=== PATIENT | female | born 1965 | race Caucasian/White ===

== ENCOUNTER 2018-05-09 16:27 | Emergency (ER) | payer BC, SELFPAY ==
[2018-05-09 16:32] VITALS: BP 119/80; PULSE 91; RESP 18; TEMP 36.7; O2SAT 98; BMI 24.7
--- NOTE | 2018-05-09 16:38 | DI.RAD.S_ITS ---
PROCEDURE: XR WRIST LT MIN 3V INDICATIONS: FOOSH TECHNIQUE: 4 views of the wrist were acquired. COMPARISON: None. FINDINGS: Bones: There is a distal radial metaphyseal fracture with impaction and possible intra-articular involvement. No suspicious bony lesions. Scaphoid view: Scaphoid appears intact. Soft tissues: No suspicious soft tissue calcifications. Soft tissue swelling. IMPRESSION: Distal radial metaphyseal fracture with impaction and possible intra-articular involvement. Dictated by: Sha Polo M.D. on 05/09/2018 at 17:32 Approved by: Sha Polo M.D. on 05/09/2018 at 17:34
[2018-05-09] MEDS: CODEINE/ACETAMINOPHEN 30/300 TABLET 1 TAB PO (18:35)
[2018-05-09] MEDS: CODEINE/APAP 30/300 PREPACK 1 BOTTLE MISC (18:37)
--- NOTE | 2018-05-09 18:43 | ED_ITS ---
HPI - Extremity Injury (Upper) General Chief Complaint: Extremity Injury, Upper Stated Complaint: thinks she fractured her left arm Time Seen by Provider: 05/09/18 18:01 Source: patient and family Mode of arrival: wheelchair (uses crutches) Limitations: no limitations History of Present Illness HPI narrative: This is a 52-year-old female who comes to the emergency department with complaint of left extremity injury. Patient states she was sitting on the floor wrapping Neptali hidalgo. She went to get up and moved to the living room she said her crutches aside Um and lost her balance and fell to the floor. She tried to catch herself with her arm outstretched on her left side. She felt immediate and noticed a lump at the wrist. 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 Patient denies any other injuries. She denies any in her head, any neck or back pain. She denies any new numbness or tingling in her upper extremity or elsewhere. She denies any new weakness. She has pain at the wrist and slightly extending up the forearm. 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 She has a defibrillator/pacer as well as history of congestive heart failure and diet-controlled diabetes. Patient states that these have been well controlled in the last couple weeks and she is denying any chest pain, shortness of breath, swelling in her other extremity or other concerning symptoms. Related Data Previous Rx's Medication Instructions Recorded acetaminophen-codeine 1 tab PO Q6H PRN #14 tab 05/09/18 [Tylenol-Codeine #3] Allergies Allergy/AdvReac Type Severity Reaction Status Date / Time metformin AdvReac Verified 05/09/18 16:37 Review of Systems Review of Systems All systems reviewed & are unremarkable except as noted in HPI and below Constitutional Denies weakness ENT Ears, Nose, Mouth, and Throat: Denies neck pain and Denies other (Head injury) Cardiovascular Denies chest pain, Denies rapid heart rate, Denies edema and Denies dyspnea Respiratory Denies chest congestion, Denies cough and Denies dyspnea Gastrointestinal Gastrointestinal: Denies nausea and Denies vomiting Musculoskeletal Reports as per HPI, Reports abnormal gait (Uses crutches 2nd amputation), Denies back pain, Reports deformity, Reports arthralgias (Left wrist), Reports joint swelling, Reports limited range of motion, Denies muscle weakness, Denies neck pain, Denies numbness and Denies tingling Integumentary/Breasts Denies unusual bruising and Denies wounds Neurologic Reports abnormal gait (Uses crutches 2nd amputation), Denies numbness, Denies tingling and Denies weakness PFSH Medical History Cardiac arrhythmia (Acute) Cardiac defibrillator in place (Acute) Cardiomyopathy secondary to chemotherapy (Acute) Diet-controlled diabetes mellitus (Acute) Saucedo sarcoma (Acute) Lower limb amputation, unspecified level (Acute) Osteosarcoma (Acute) Social History details: Lives on [facility] Smoking Status: Never smoker Exam Narrative Exam Narrative: GENERAL: Alert and oriented x three, well-nourished, well- appearing female in mild distress. HEENT: Head normocephalic, atraumatic, EOMI, pupils reactive, face symmetric, moist mucous membranes NECK: Supple, full range of motion CARDIOVASCULAR: Regular rate and rhythm without murmurs, rubs or gallops. RESPIRATORY: Breath sounds equal bilaterally, no wheezes rales or rhonchi. ABDOMEN: Soft, nontender. Normoactive bowel sounds all 4 quadrants. No guarding or rebound, rigidity, no mass EXTREMITIES: Normal range of motion except for left wrist. Patient has deformity of the left wrist over the radial area. Patient has some movement in all 5 fingers, she has normal sensation, cap refills less than 2 sec and fingers and hand are warm. Patient has 2+ radial pulse. She has no other bony tenderness in the fingers or hand, nor any in the elbow or shoulder, no clubbing or edema. Neurovascularly intact. Patient does have an amputation of her left lower extremity. NEUROLOGICAL: Cranial nerves II through XII grossly intact. SKIN: Warm, dry, no petechiae, no rashes or lesions. Initial Vital Signs Initial Vital Signs: Vital Signs Temperature 98.1 F 05/09/18 16:32 Pulse Rate 91 H 05/09/18 16:32 Respiratory Rate 18 05/09/18 16:32 Blood Pressure 119/80 05/09/18 16:32 Pulse Oximetry 98 05/09/18 16:32 Course Orders Ordered: ED Orders 05/09/18 16:38 XR wrist LT min 3V Stat Discontinued Medications Acetaminophen/Codeine Phosphate (Tylenol #3) 1 tab PO NOW ONE Stop: 05/09/18 18:27 Last Admin: 05/09/18 18:35 Dose: 1 tab Acetaminophen/Codeine Phosphate (Tylenol #3 Prepack) 1 bottle MISC SEEINSTR ONE Stop: 05/09/18 18:27 Last Admin: 05/09/18 18:37 Dose: 1 bottle Vital Signs - 8 hr 05/09/18 20:07 Pulse Rate 79 Respiratory Rate 18 Blood Pressure 123/71 Pulse Oximetry 97 MDM - Extremity Injury (Upper) MDM Narrative Medical decision making narrative: Patient's x-ray shows a fracture. Discussed with Dr. Gabrielle Soto who reviewed the images. Plan for outpatient follow-up. Dr. Soto has the patient's number so she can contact her to set up follow-up. Patient also given referral. Patient states she does not want anything stronger than Tylenol 3. She normally takes 1 in the evening, given a prescription so she has additional which she may take every 6 hr as needed. We did discuss she may take regular Tylenol 650 instead during the day if she prefers. She should not take Tylenol and Tylenol 3 at the same time. She has led to have a 1000 mg of Tylenol total in a 24 hour period. Patient only normally uses crutches. We discussed she feels she will be able to ambulate with her crutches at home she states she does not really have to use her wrist or lower portion of her arm typically with her crutches. She does have a wheelchair that she can have access to. We also discussed platform brace is an option if she needs a walker or walker with an additional orthopedic device to help her get around. Also given rx for wheelchair if she does not have access to one at home. Recheck after splint placed by nursing, adjusted edge padding for patient, nvi. Discharge Plan Departure Patient Disposition: Home Clinical Impression: Closed fracture of left wrist Discharge Date/Time: 05/09/18 19:50 Interventions: ED Discharge Assessment Last Done: 05/09/18 20:07 Instructions: DI for Wrist Fracture Activity Restrictions/Additional Instructions: Follow-up with orthopedic surgery in the next 3-5 days for re-evaluation. Call for an appointment. You may take Tylenol #3 every 8 hr as needed for pain. You may take plain Tylenol up to a 1000 mg instead of Tylenol 3. But do not take these at the same time. You may have a total of 3000mg of tylenol in 24 hour period. If you need a walker with platform (wrist brace) they may have them available at [facility], [place] or through a medical supply store. You may also ask Dr. Soto about options also. Splint Care: Keep splint clean and dry. Elevated affected body part to decrease swelling. OK to use ice pack on the affected body part. Use for 15-20 minutes each time, for 5-6x per day. If you develop worsening pain, numbness, tingling, discoloration of the affected body part, loosen the splint by loosening the MICHELLE wrap, and either see your doctor for an urgent re-assessment, or return to the Emergency Department. Return to the Emergency Department for any new or worsening symptoms. Prescriptions: New acetaminophen-codeine [Tylenol-Codeine #3] 300-30 mg tablet 1 tab PO Q6H PRN (Reason: pain) Qty: 14 RF: 0 Referrals: Gabrielle Soto MD [Physician] -
[2018-05-09 20:07] VITALS: BP 123/71; PULSE 79; RESP 18; O2SAT 97
== END 2018-05-09 19:50 | disposition home or self-care (01) ==
PROVIDERS: Emergency Provider Emergency Medicine
DX: S62.102A Fracture of unspecified carpal bone, left wrist, initial encounter for closed fracture (principal); W18.30XA Fall on same level, unspecified, initial encounter
CPT/HCPCS: 29105; 73110; 99282; 99283

== ENCOUNTER → 2018-05-10 14:13 | Outpatient (CLI) | payer BC, SELFPAY ==
--- NOTE | 2018-05-10 | DI.CT.S_ITS ---
PROCEDURE: CT UE LT WO CON INDICATIONS: DISTAL END OF LEFT RADIUS FRACTURE TECHNIQUE: Noncontrast 1 mm axial sections acquired through the carpal bones, with coronal and sagittal reformats. COMPARISON: [facility], CR, XR WRIST LT MIN 3V, 05/09/2018, 16:46. FINDINGS: Image quality: Excellent. Bones: There are no previous left wrist radiograph, again noted is an acute comminuted impaction type fracture involving distal radial shaft. There is shortening of distal radial shaft with approximately 5 mm overlapping of fracture site. No articular involvement is seen. No significant displacement of fractured fragments are noted. No suspicious bony lesion is seen. No other fracture is noted. No dislocation. Soft tissues: Soft tissue swelling around distal radial fracture site is seen. No suspicious soft tissue mass or calcification. IMPRESSION: Acute comminuted and impacted fracture involving distal radial shaft as described above. No dislocation. No other fracture is seen. Mild surrounding soft tissue swelling. Dictated by: Tyshawn Johnson M.D. on 05/10/2018 at 15:36 Approved by: Tyshawn Johnson M.D. on 05/10/2018 at 15:44
== END ==
PROVIDERS: PCP Family Medicine; Visit Provider Orthopaedic Surgery
DX: S52.502A Unspecified fracture of the lower end of left radius, initial encounter for closed fracture (principal)
CPT/HCPCS: 73200

== ENCOUNTER → 2019-05-17 12:00 | Outpatient (CLI) | payer BC, SELFPAY ==
--- NOTE | 2019-05-17 12:02 | DI.US.S_ITS ---
PROCEDURE: US ABDOMEN COMPLETE INDICATIONS: LEFT LOWER QUADRANT PAIN TECHNIQUE: Real-time scanning was performed of the abdominal and retroperitoneal organs, with image documentation. COMPARISON: None. FINDINGS: Liver: Liver is normal in size and demonstrates diffusely increased echotexture. Gallbladder: There is a 4 mm mobile gallstone. No thickening, pericholecystic fluid or sonographic Dove's sign. Biliary ducts: Intrahepatic bile ducts are non-dilated. Extrahepatic bile duct caliber measures 5.4 mm. Normal is 6-7 mm or less in diameter, or 10 mm or less post-cholecystectomy. Pancreas: Visualized portions of the pancreas are sonographically normal. Spleen: Spleen is normal in size and homogeneous in echotexture. Kidneys: Kidneys are normal in size and echotexture. Right kidney measures 10.8 cm long; left kidney measures 10.6 cm long. No hydronephrosis or nephrolithiasis. No solid masses. Aorta: Visualized aorta is normal in caliber at less than 3 cm. Iliacs: Proximal common iliac arteries are normal in caliber at less than 2.5 cm. IVC: Intrahepatic inferior vena cava is patent. Miscellaneous: No free abdominal fluid. IMPRESSION: 1. Cholelithiasis. No ultrasound findings to suggest acute cholecystitis. 2. Diffusely increased hepatic echotexture. This finding is most likely secondary to hepatic fatty infiltration although other hepatocellular disease may have a similar appearance. Recommend clinical correlation. Dictated by: Sha Polo M.D. on 05/17/2019 at 12:45 Approved by: Sha Polo M.D. on 05/17/2019 at 12:47
== END ==
PROVIDERS: PCP Family Medicine; Visit Provider Physician Assistant
DX: R10.32 Left lower quadrant pain (principal); K80.20 Calculus of gallbladder without cholecystitis without obstruction
CPT/HCPCS: 76700

== ENCOUNTER → 2020-11-28 09:15 | Outpatient (CLI) | payer OTHER, SELFPAY ==
--- NOTE | 2020-11-28 09:19 | DI.RAD.S_ITS ---
PROCEDURE: XR FEMUR RT MIN 2V INDICATIONS: PAIN IN RIGHT HIP AND THIGH TECHNIQUE: 3 views of the femur were acquired. COMPARISON: [facility], CR, XR HIP W PEL IF DONE RT 2V, 11/28/2020, 9:18. FINDINGS: Bones: No fractures or dislocations. No suspicious bony lesions. Mild medial, lateral and patellofemoral compartment narrowing is noted at the knee. No erosions. Soft tissues: No suspicious soft tissue calcifications or masses. 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 Dictated by: Judy Moore M.D. on 11/28/2020 at 10:40 Approved by: Judy Moore M.D. on 11/28/2020 at 10:42
--- NOTE | 2020-11-28 09:19 | DI.RAD.S_ITS ---
PROCEDURE: XR HIP W PEL IF DONE RT 2V INDICATIONS: PAIN IN RIGHT HIP AND THIGH TECHNIQUE: AP pelvis with lateral view(s) of the right hip(s). COMPARISON: None. FINDINGS: Bones: There is nonvisualization of the left pelvic bones. Right hip demonstrates minimal arthritic narrowing with periarticular osteophytes. No erosions. Soft tissues: The visualized bowel gas pattern is normal. No suspicious soft tissue calcifications. IMPRESSION: 1. Minimal right hip osteoarthritis. 2. Nonvisualization of the left pelvic bones. Recommend correlation to surgical removal. Otherwise, CT is recommended for further evaluation. Dictated by: Judy Moore M.D. on 11/28/2020 at 10:42 Approved by: Judy Moore M.D. on 11/28/2020 at 10:43
== END ==
PROVIDERS: PCP Family Medicine; Referring Provider Family Medicine; Visit Provider Family Medicine
DX: M25.551 Pain in right hip (principal); M79.651 Pain in right thigh; M17.11 Unilateral primary osteoarthritis, right knee
CPT/HCPCS: 73502; 73552

== ENCOUNTER → 2023-05-21 12:50 | Outpatient (CLI) | payer OTHER, SELFPAY ==
--- NOTE | 2023-05-21 | DI.US.S_ITS ---
PROCEDURE: US ABDOMEN LIMITED INDICATIONS: RUQ PAIN TECHNIQUE: Real-time scanning was performed of the abdominal and retroperitoneal organs, with image documentation. COMPARISON: [facility], , US ABDOMEN COMPLETE, 05/17/2019, 12:07. FINDINGS: Liver: Liver is normal in size and homogeneous in echotexture. Gallbladder: A 1.6 cm gallstone is present within the gallbladder fundus. The gallbladder appears mildly contracted and the wall measures 3.5 mm in diameter. No pericholecystic fluid or sonographic Dove sign. Biliary ducts: Intrahepatic bile ducts are non-dilated. Extrahepatic bile duct caliber measures 7 mm. Normal is 6-7 mm or less in diameter, or 10 mm or less post-cholecystectomy. Pancreas: The pancreas is not visualized due to bowel gas. Miscellaneous: There is a 3.5 x 1.8 x 2.9 cm right abdominal wall echogenic mass. IMPRESSION: 1. Cholelithiasis. No findings to suggest choledocholithiasis or acute cholecystitis. 2. Fat containing abdominal wall mass, most consistent with a lipoma. No prior studies are available for comparison. In the setting of rapid interval growth, the rare liposarcoma cannot be excluded. Dictated by: Marge Peraza M.D. on 05/21/2023 at 14:47 Approved by: Marge Peraza M.D. on 05/21/2023 at 14:52
== END ==
PROVIDERS: PCP Family Medicine; Referring Provider Family Medicine; Visit Provider Family Medicine
DX: K80.20 Calculus of gallbladder without cholecystitis without obstruction (principal); R19.09 Other intra-abdominal and pelvic swelling, mass and lump; R10.11 Right upper quadrant pain
CPT/HCPCS: 76705

== ENCOUNTER → 2024-05-03 08:45 | Outpatient (CLI) | payer OTHER, SELFPAY ==
--- NOTE | 2024-05-03 09:29 | DI.CT.S_ITS ---
PROCEDURE: CT HEAD/BRAIN WO/W CON INDICATIONS: thunderclap headache TECHNIQUE: 4.5 mm thick angled axial sections acquired from the foramen magnum to the vertex before and after the administration of intravenous contrast, with coronal and sagittal reformats. For radiation dose reduction, the following was used: automated exposure control, adjustment of mA and/or kV according to patient size. COMPARISON: None. FINDINGS: Image quality: Excellent. CSF Spaces: Basal cisterns are patent. No extra-axial fluid collections. Ventricles are normal in size and shape. Brain: No midline shift. No intracranial bleeds or masses. No abnormal intracranial enhancement. Drummond-white interface appears normal. Skull and face: Calvarium and visualized facial bones appear intact, without suspicious lesions. Sinuses: Visualized sinuses and mastoids are clear. IMPRESSION: No acute intracranial process Dictated by: Alex John M.D. on 05/03/2024 at 11:02 Approved by: Alex John M.D. on 05/03/2024 at 11:03
== END ==
PROVIDERS: PCP Family Medicine; Referring Provider Family Medicine; Visit Provider Family Medicine
DX: G44.53 Primary thunderclap headache (principal)
CPT/HCPCS: 70470; Q9967